=== PATIENT | male | born 1995 | race Caucasian/White ===

== ENCOUNTER 2016-10-14 15:03 | Emergency (ER) | payer OTHER ==
[~2016-10-14] VITALS: Ht 190.5 cm; Wt 107.2 kg
[2016-10-14 15:06] VITALS: BP 148/82; TEMP 36.8; Ht 190.5 cm; Wt 107.2 kg
[2016-10-14] MEDS ORDERED: BUPIVACAINE 0.5 % 5 MG/1 ML MPF 30ML VIAL INFIL STA (15:15)
[2016-10-14] MEDS ORDERED: XYLOCAINE 1%/SOD BICARB 20 ML VIAL INFIL STA (15:15)
--- NOTE | 2016-10-14 15:35 | DIAGNOSTIC IMAGING REPORT ---
LEFT MIDDLE FINGER 3 VIEWS HISTORY: Left middle finger laceration on dorsal PIP COMPARISON: None. FINDINGS: There is no fracture or dislocation. Soft tissue swelling at the PIP joint. No radiopaque foreign bodies. IMPRESSION: No fractures. Electronically signed by: Armani Lindo M.D. 10/14/2016 3:34 PM Dictated Date/Time: 10/14/2016 3:33 PM
[2016-10-14] MEDS ORDERED: ALBU18002 INH (16:07)
[2016-10-14] MEDS ORDERED: ONDA4TAB46 PO (16:07)
[2016-10-14] MEDS ORDERED: BENZ100C84 PO (16:07)
--- NOTE | 2016-10-14 16:24 | EMERGENCY ROOM VISIT NOTE ---
ED Visit Note First contact with patient: 15:09 Chief Complaint: "Sliced left middle finger" History of Present Illness: This patient is a 21 year old male who presents to the Emergency Department via private vehicle for evaluation of their left middle finger laceration. Patient sustained the laceration while at work, around 2:30 PM while at [employer], moving plumbing material. He states that one fo the studs on the material sliced though his glove and into his finger. They report a moderate amount of bleeding initially. They den any numbness or tingling into the distal extremity. They report no decreased range of motion of the affected digit. Patient rates his current discomfort as a 4/10. Patient's Tetanus status is currently up-to-date. Medications: As noted below Allergies: NKDA PMH: No pertinent PMHx SHx: Currently employed ROS: All pertinent positive and negative review of systems are appropriately documented in the History of Present Illness. Physical Exam: VITAL SIGNS - Vital signs and nursing notes were reviewed. GENERAL - 21-year-old male appearing his stated age who is in no acute distress. Communicates well with provider and answers questions appropriately. SKIN - There is a 1 cm long laceration noted over the left third digit PIP, ventral aspect perpendicular to the finger. The edges gape apart with traction. No foreign bodies appreciated. Upon further examination there are no deep structures including vessel, tendon, or bony structures appreciated. There is no active bleeding noted. MUSCULOSKELETAL - Laceration as described above. +5/5 strength appreciated of the affected digit. Full range of motion of the affected digit. Slight tenderness to palpation of the left third PIP joint. NEUROLOGIC - Spinothalamic tract was found to be intact with ability to discriminate sharp versus dull sensation. No sensory defects of the dorsal column were appreciated utilizing light touch for evaluation. VASCULAR - Capillary refill was brisk. IMAGING: LEFT MIDDLE FINGER 3 VIEWS HISTORY: Left middle finger laceration on dorsal PIP COMPARISON: None. FINDINGS: There is no fracture or dislocation. Soft tissue swelling at the PIP joint. No radiopaque foreign bodies. IMPRESSION: No fractures. Electronically signed by: Armani Lindo M.D. 10/14/2016 3:34 PM Dictated Date/Time: 10/14/2016 3:33 PM ED Course: Patient was seen and evaluated by myself. Risks and benefits of performing primary wound closure versus no repair were discussed with the patient who verbalizes understanding. Verbal consent was obtained prior to performing the procedure. 2 cc of 1% buffered lidocaine and 0.5% bupiviciane was used to anesthetize the wound. A digital block was going to be utilized initially however using joint decision making with the patient a local injection was performed. The wound was cleansed and prepped in the typical sterile fashion utilizing normal saline and Betadine. The wound was sterilely draped. Once proper anesthetization was established, the wound was further examined and demonstrated no abnormalities as also verified by radiograph as noted above. The wound was copiously irrigated with normal saline and Betadine. The wound was closed using 2 simple, 5-0 nylon sutures with the wound edges being well approximated. Patient tolerated the procedure well. No complications were met. The wound was cleansed and dressed with a Bacitracin dressing. A metal splint was applied to the finger for comfort. Last TDAP 12/01/2009. Patient educated on worrisome symptoms for return visit to the Emergency Department. He is to follow with workmans compensation individual for final clearance. Patient discharged to home in good condition. In the evaluation and treatment of this patient, the following differential diagnoses were considered: Finger Fracture, Finger Dislocation, finger laceration, Finger Sprain, Finger Contusion, Jersey Finger, or Mallet Finger. Current/Historical Medications Scheduled PRN Albuterol Sulfate (Proair Respiclick), 2 PUFFS INH Q4H PRN for Cough/Shortness Of Breath Benzonatate (Tessalon Perles), 100 MG PO TID PRN for Cough Ondansetron Hcl (Zofran), 4 MG PO Q6H PRN for Nausea Allergies Coded Allergies: No Known Allergies (Unverified , 10/14/16) Vital Signs Date Time Temp Pulse Resp B/P Pulse Ox O2 Delivery O2 Flow Rate FiO2 10/14/16 16:40 77 16 97 10/14/16 15:06 36.8 89 18 148/82 97 Room Air Departure Information Impression Primary Impression: Laceration Dispostion Home / Self-Care Condition GOOD Referrals No Doctor, Assigned (PCP) Patient Instructions My [facility] Additional Instructions Discharge Instructions: You have received 2 sutures on your left middle finger. These sutures are NOT dissolvable and WILL need to be removed by a health care provider in 12 days. You can return to the Emergency Department or contact your Primary Care Provider to have the sutures removed. Please wear the splint for comfort until the sutures are removed. Proper wound care is essential for adequate wound healing and infection prevention. You can shower and clean the wound with soap and water. Do not scour over the wound, pat dry with a towel. Do not submerse the wound (i.e. bathe or dish wash) until the sutures have been removed. You can use an antibiotic ointment with a dressing over the wound for the next 3-4 days. After this time you may leave the wound dry and open to the air. If crust develops over the wound you can use a Q-tip to apply a 1:1 peroxide:water solution to clean the wound. Look for signs of infection of the wound including: increased pain, swelling, foul discharge, streaking, or increased temperature. If any of these are noticed you should return to the Emergency Department for further assessment and treatment. As with any laceration you may have received nerve damage to the surrounding tissues. This damage may or may not be permanent. You should keep the area covered with sunscreen for the first 6 months to 1 year when at risk for exposure to help minimize scarring. You can also use scar reducing creams or Vitamin E oil to help minimize scarring. For pain control, you can use the following [id number] medicines (if >12 yo): - Regular strength (325mg/tab) Tylenol (acetaminophen) 2 tabs every 4-6 hours as needed. Do not exceed 12 tablets in a 24 hour period. Avoid taking more than 4 grams (4000 mg) of Tylenol per day. This includes any other sources of acetaminophen you may take on a regular basis. - Regular strength (200 mg/tab) Advil (ibuprofen) 1-2 tabs every 4-6 hours as needed. Do not exceed a dose of 3200 mg per day. Return to the emergency department if your symptoms worsen despite treatment course outlined above.
[2016-10-14 16:40] VITALS: PULSE 77; O2SAT 97
== END 2016-10-14 16:41 | disposition home or self-care (01) ==
LOC: C.EDB 15:05 → C.EDD 16:41
DX: S61.213A Laceration without foreign body of left middle finger without damage to nail, initial encounter (principal); W45.8XXA Other foreign body or object entering through skin, initial encounter; Y93.89 Activity, other specified; Y99.0 Civilian activity done for income or pay; Y92.89 Other specified places as the place of occurrence of the external cause